=== PATIENT | male | born 1960 | race Asian ===

== ENCOUNTER 2019-08-27 09:06 | Day surgery (SDC) | payer OTHER ==
[2019-08-26 14:54] VITALS: BMI 24.7
[2019-08-27] MEDS ORDERED: MIDAZOLAM HCL 2 MG/2 ML SINGLE DOSE VIAL ONE ×2 (10:33)
[2019-08-27 11:00] VITALS: TEMP 97.5
[2019-08-27] MEDS ORDERED: ARTIFICIAL TEARS (POLYVINYL ALCOHOL) OPTH DROPS OU ONE (13:30)
[2019-08-27 15:18] VITALS: BP 116/74; PULSE 63
--- NOTE | 2019-08-28 17:47 | PATH ---
Surgical Pathology Report Patient Name: TREVOR BERRY [facility]. Rec. #: [id number] /Age/Gender: 1960 (Age: 59) / M Account: [id number] Location: [facility]-ENDOSCOPY Taken: 08/27/2019 Received: 08/27/2019 Reported: 08/28/2019 Physicians: Damon Tillman M.D. Specimen(s) Received RECTUM POLYP Clinical History History of adenomatous polyps Postoperative diagnosis: Colon polyp, diverticulosis, hemorrhoids Final Diagnosis RECTUM POLYP, BIOPSY: HYPERPLASTIC POLYP. Electronically Signed Minnie Sawyer M.D. Gross Description Received in formalin, labeled "rectum polyp biopsy" are 2 cool, irregular portions of soft tissue measuring 0.3 and 0.9 cm. in greatest dimension. The specimens are submitted in toto in one cassette. 08/27/201908/27/2019
== END 2019-08-27 13:30 | disposition home or self-care (01) ==
LOC: JASU-ENDO 09:06
PROVIDERS: ATTEND Internal Medicine Gastroenterology
PROC: 0DBP8ZX Excision of Rectum, Via Natural or Artificial Opening Endoscopic, Diagnostic (ICD-10-PCS; principal; 2019-08-27 09:45)
DX: Z12.11 Encounter for screening for malignant neoplasm of colon (principal); Z86.010 Personal history of colon polyps; K62.1 Rectal polyp; K64.8 Other hemorrhoids; K57.30 Diverticulosis of large intestine without perforation or abscess without bleeding

== ENCOUNTER 2024-07-18 04:19 | Day surgery (SDC) | payer OTHER ==
[2024-07-10 16:28] VITALS: BMI 23.1
[2024-07-18 08:40] VITALS: TEMP 98.3
[2024-07-18 09:05] VITALS: PULSE 67
[2024-07-18 09:51] VITALS: BP 106/81; RESP 12
== END 2024-07-18 09:25 | disposition home or self-care (01) ==
LOC: JASU-ENDO 04:19
PROVIDERS: ATTEND Internal Medicine Gastroenterology
PROC: 0DB98ZX Excision of Duodenum, Via Natural or Artificial Opening Endoscopic, Diagnostic (ICD-10-PCS; 2024-07-18)
PROC: 0DB68ZX Excision of Stomach, Via Natural or Artificial Opening Endoscopic, Diagnostic (ICD-10-PCS; 2024-07-18)
PROC: 0DJD8ZZ Inspection of Lower Intestinal Tract, Via Natural or Artificial Opening Endoscopic (ICD-10-PCS; principal; 2024-07-18 08:00)
DX: Z12.11 Encounter for screening for malignant neoplasm of colon (principal); K64.8 Other hemorrhoids; Z86.010 Personal history of colon polyps; K21.00 Gastro-esophageal reflux disease with esophagitis, without bleeding; K44.9 Diaphragmatic hernia without obstruction or gangrene; R10.11 Right upper quadrant pain
CPT/HCPCS: 88305-TC; 88342-TC